=== PATIENT | female | born 1995 | race Two or more races ===

== ENCOUNTER 2024-09-06 20:20 | Emergency (ER) | payer MEDICAID, SELFPAY ==
[2024-09-06 20:53] VITALS: BP 120/77; PULSE 94; RESP 17; TEMP 36.8; O2SAT 100
--- NOTE | 2024-09-06 20:59 | XR_ITS ---
Examination: Abdomen sonogram, Limited Date and time of exam: September 06, 2024 2146 hrs. Indications: Onset epigastric pain today Technique: Real-time powell scale transabdominal sonographic images of the upper abdomen obtained. Findings: Multiple gallstones Gallbladder wall 0.3 cm no edema Common bile duct 0.2 cm Pancreatic head 2.2 cm Liver 18.3 cm fatty infiltration no focal liver lesions Normal hepatopedal portal venous flow Patent IVC Impression: Cholelithiasis, negative for cholecystitis Hepatomegaly fatty liver
--- NOTE | 2024-09-06 21:00 | PD.EDRME ---
Rapid Medical Screening Exam E Arrival date/time: 09/06/24 20:20 29F with no significant PMH presents to ED with several hours of RUQ/epigastric pain. Chief Complaint: Abdominal Pain Vital signs: Vital Signs Temperature 98.2 F 09/06/24 20:53 Pulse Rate 94 09/06/24 20:53 Respiratory Rate 17 09/06/24 20:53 Blood Pressure 120/77 09/06/24 20:53 Pulse Oximetry (%) 100 09/06/24 20:53 Oxygen Delivery Method Room Air 09/06/24 20:53
[2024-09-06 21:19] LABS: Basophils # (Auto) 0.1 Thou/mm3 (0.0-0.2); Basophils % (Auto) 0 % (0-2.5); Eosinophils # (Auto) 0.4 Thou/mm3 (0.0-0.5); Eosinophils % (Auto) 3 % (0-10); Hemoglobin 11.6 g/dL (12.0-16.0); Immature Granulocytes % (Auto) 0 % (0-0); Immature Granulocytes Auto 0.05 Thou/mm3 (0.00-0.00); Lymphocytes # (Auto) 2.5 Thou/mm3 (1.0-4.8); Lymphocytes % (Auto) 20 % (10-50); Mean Corpuscular HGB Conc 32.2 g/dl (31.0-37.0); Mean Corpuscular Volume 87 fL (80-100); Monocytes # (Auto) 0.7 Thou/mm3 (0.0-0.8); Monocytes % (Auto) 6 % (0-12); Neutrophils # (Auto) 8.9 Thou/mm3 (1.8-7.7); Neutrophils % (Auto) 71 % (37-80); Nucleated Red Blood Cell % 0 /100 WBC (0); Platelet Count 267 Thou/mm3 (140-440); RDW Standard Deviation 45.1 fL (36.4-46.3); Red Blood Count 4.15 Miln/mm3 (4.00-5.20); White Blood Count 12.6 Thou/mm3 (3.6-11.0)
[2024-09-06 21:44] LABS: Alanine Aminotransferase 13 U/L (10-49); Albumin, Serum 4.5 gm/dL (3.5-5.0); Albumin/Globulin Ratio 1.4 (1.2-2.2); Alkaline Phosphatase 56 U/L (46-116); Anion Gap 7 (7-16); Aspartate Amino Transferase 16 U/L (0-34); BUN/Creatinine Ratio 20 Ratio (12-20); Bilirubin,Total 0.4 mg/dL (0.3-1.2); Blood Urea Nitrogen 14 mg/dL (9-23); Calcium 9.7 mg/dL (8.3-10.6); Calcium (Corrected) 9.7 mg/dL (8.5-10.1); Carbon Dioxide 26.3 mMol/L (20.0-31.0); Chloride 105 mMol/L (98-107); Creatinine (Component) 0.7 mg/dL (0.6-1.3); Globulin 3.2 gm/dL (2.3-3.5); Glucose 87 mg/dL (74-106); Lipase 41 U/L (12-53); Osmolality,Calculated 275 (275-295); Potassium 3.8 mMol/L (3.4-5.1); Sodium 138 mMol/L (136-145); Total Protein 7.7 gm/dL (5.7-8.2); eGFR > 60 See Note
[2024-09-06 21:45] LABS: Collection Type, Urine Clean Catch; RBC,Urine 0 /hpf (0-3); WBC,Urine 0 /hpf (0-5)
[2024-09-06 22:03] LABS: Bacteria,Urine Rare; Bilirubin,Urine Negative (Negative); Blood,Urine Negative (Negative); Clarity,Urine Clear (Clear/Hazy); Color,Urine Lt-Yellow (Lt Yel-Yel); Glucose, Urine Negative (Negative); Ketones,Urine Negative (Negative); Leukocyte Esterase,Urine Negative (Negative); Nitrite,Urine Negative (Negative); PH,Urine 6.5 (5.0-7.0); Protein,Urine Negative (Neg - Trace); Specific Gravity,Urine 1.022 (1.001-1.035); Squamous Epithelial Cell,Urine 3 /hpf (0-5); Urobilinogen,Urine Negative mg/dL (0.0-1.0)
[2024-09-06 22:07] LABS: HCG Qualitative,Urine Negative
[2024-09-06 22:35] VITALS: BP 118/60; PULSE 88; RESP 18; TEMP 36.6; O2SAT 100
--- NOTE | 2024-09-06 22:55 | EDNOTE_ITS ---
ED Abdominal Pain RME/HPI General Chief Complaint: Abdominal Pain Stated complaint: RIGHT UPPER ABD PAIN Arrival date/time: 09/06/24 20:20 RME / HPI RME / HPI narrative: 09/06/24 20:20 29F with no significant PMH presents to ED with several hours of RUQ/epigastric pain. ----- Dr. Peres?s Main ED Evaluation: 29yo female presents to the ED for a chief complaint of RUQ pain x tonight. She states the pain has been progressively getting worse, reporting she took a medication she was prescribed for gastritis without any alleviation of symptoms, so she came in for evaluation. She denies any N/V/D, constipation, UTI symptoms or any other associated symptoms. No known allergies. Related Data Previous Rx's ?Medication ?Instructions ?Recorded ibuprofen 600 mg tablet 600 mg PO Q8H 7 days #21 tabs 12/24/21 Allergies Allergy/AdvReac Type Severity Reaction Status Date / Time No Known Allergies Allergy Verified 12/24/21 08:40 Review of Systems Review of Systems Systems Reviewed: All systems reviewed, normal except as documented Narrative Review of Systems: Gen: No fever, no chills, no weight loss EYES: No discharge, no visual changes, no pain HEENT: No ear pain, no congestion, no sore throat PULM: No shortness of breath, no cough, no congestion CV: No chest pain, no dyspnea on exertion, no palpitations GI: No nausea, no vomiting, no diarrhea, + pain, no constipation : No frequency, no urgency, no dysuria Musc/skel: No joint pain, no back pain Skin: No rash Psyc: No hallucinations, no depression Heme/Lymph: No easy bleeding or bruising tendencies Neuro: No weakness, no headache Past Medical History Past Medical History NEUROLOGIC: Negative Neurological Disorders or Seizures CARDIAC: Negative Cardiac Disorders, Congestive Heart Failure, Edema, Cellulitis or Varicose Veins RESPIRATORY: Negative Chronic Obstructive Pulmonary Disease (COPD), Asthma, Pneumonia, Pulmonary Fibrosis, Tuberculosis or Sleep Apnea GASTROINTESTINAL: Negative Gastrointestinal Disorders or Hepatitis GENITOURINARY: Negative Genitourinary Disorders or Renal Disease MUSCULOSKELETAL: Negative Musculoskeletal Disorders ENDOCRINE: Negative Endocrine Disorders, Diabetes Mellitus Type 1 or Diabetes Mellitus Type 2 HEMATOLOGIC: Negative Blood Disorders or Sickle Cell Disease OTHER HISTORY: Negative Hospitalization, Autoimmune Disease, Shingles, Falls, Blood Transfusions, Blood Transfusion Reaction, Anesthesia Reactions, Chemotherapy, Radiation Therapy, MRSA, Chicken Pox, Measles, Mumps or Cancer Family History FAMILY HISTORY: Negative Family Psychiatric Problems, Family Respiratory Disorders, Family Cardiac Disorders, Family Gastrointestinal Problems, Family Cancer, Family Surgery or Family Anesthesia Reaction Surgical History SURGICAL: Negative Pacemaker Social History SMOKING STATUS: Never smoker ED Exam Narrative Physical exam: GENERAL APPEARANCE: alert and oriented x 4, well-developed, well-nourished, no acute distress HEENT: Normocephalic, atraumatic; pupils equal, round, reactive to light; EOMI; mucous membranes pink, moist; oropharynx clear NECK: Supple LUNGS: CTABL; no wheezes, no rales, no rhonchi HEART: Regular rate, regular rhythm; normal S1, S2; no murmurs ABDOMEN: non distended; normal BS; soft, RUQ tenderness, mild guarding, no rebound; no masses, no organomegaly, no hernia BACK: no CVA tenderness EXTREMITIES: atraumatic; no edema NEUROLOGIC: awake; alert and oriented x4; cranial nerves II-XII grossly intact; no focal sensory or motor deficits PSYCHIATRIC: appropriate mood and affect SKIN: warm, dry, normal color; no rashes Course Quality Measures none Orders Category Date Time Status US gall bladder Stat Exams 09/06/24 20:59 Completed CBC Stat Lab 09/06/24 21:02 Completed CMP [Comprehensive Metabolic Panel] Stat Lab 09/06/24 21:02 Completed HCG Qualitative,Urine Stat Lab 09/06/24 21:30 Completed Lipase Stat Lab 09/06/24 21:02 Completed UA [Urinalysis] Stat Lab 09/06/24 21:30 Completed HYDROcodone*/APAP 5/325 [[place] 5/325] Med 09/06/24 23:24 Discontinued 1 tab PO X1 ONE Ketorolac Inj [Toradol Inj] Med 09/06/24 23:24 Discontinued 30 mg IM X1 ONE Vital Signs Vital signs: Vital Signs Temperature 98.2 F 09/06/24 20:53 Pulse Rate 94 09/06/24 20:53 Respiratory Rate 17 09/06/24 20:53 Blood Pressure 120/77 09/06/24 20:53 Pulse Oximetry (%) 100 09/06/24 20:53 Oxygen Delivery Method Room Air 09/06/24 20:53 Pulse ox is 100% on room air, which is normal according to my interpretation. Abdominal Pain MDM MDM Narrative MDM Narrative:: Scribe Attestation: 09/06/24 - Leola Alvarez, am scribing for and in the presence of Dr. Peres. Patient data External records reviewed:: [facility] previous records (Per chart review, patient was seen here on 12/14/22 for epigastric pain.) Clinical information provided by:: patient Social determinants that could affect healthcare access:: none Patient has the following chronic illnesses:: none How is presenting disease/condition affected by chronic disease/condition?: no chronic disease Evaluation data The following diagnostics were reviewed and interpreted by me:: lab results and radiology exam(s) Lab and/or radiology exams considered but not ordered:: none Interpretation Summary: WBC count is elevated at 12.6, CMP is normal, UA shows rare bacteria, HCG is negative, according to my interpretation. ----- I have personally reviewed the radiology data and agree with the radiologist's interpretation below: [facility] Report Signed Patient: HARIS MARTINEZ Record#: [id number] Birthdate: 1995 Age/Sex: 29 / F [facility] Attending Dr: Ordering Physician: Shaun Dahl PA-C Date of Service: 09/06/24 Procedure(s): US gall bladder Accession Number(s): [id number] cc: Dwain Lozada PA-C; Tony Lima MD; Shaun Dahl PA-C~ Examination: Abdomen sonogram, Limited Date and time of exam: September 06, 2024 2146 hrs. Indications: Onset epigastric pain today Technique: Real-time powell scale transabdominal sonographic images of the upper abdomen obtained. Findings: Multiple gallstones Gallbladder wall 0.3 cm no edema Common bile duct 0.2 cm Pancreatic head 2.2 cm Liver 18.3 cm fatty infiltration no focal liver lesions Normal hepatopedal portal venous flow Patent IVC Impression: Cholelithiasis, negative for cholecystitis Hepatomegaly fatty liver Dictated By: Tony Lima MD Signed By: <Electronically signed by Tony Lima MD in OV> 09/06/24 2314 Medications / Prescriptions Medications or Prescriptions considered but not ordered:: none Medication administrations:: Medication Administration History Discontinued Medications Hydrocodone Bitart/Acetaminophen (Hydrocodone/Apap 5/325 Tablet) 1 tab PO X1 ONE Stop: 09/06/24 23:25 Last Admin: 09/06/24 23:39 Dose: 1 tab Documented By: SF Ketorolac Tromethamine (Ketorolac Inj 30 Mg/Ml Vial) 30 mg IM X1 ONE Stop: 09/06/24 23:25 Last Admin: 09/06/24 23:40 Dose: 30 mg Documented By: SF see above, if any Consultations Consultation(s) initiated? (list below): No Diagnosis Differential diagnosis abdominal pain: pancreatitis and other (biliary colic, cholecystitis, hepatitis, gastritis) Most likely diagnosis given after review of the tests above:: see below Admission Indicated Admission indicated?: not indicated Admission Request Was there a request for admission?: No Disposition Plan Disposition Plan: Discharge Discharge Attestation Discharge Attestation: The patient and all family members were given an opportunity to ask questions and understood the discharge instructions. Discharge instructions specifically effects, indications for sooner follow up or return to the emergency department, and the expected course of current diagnosis. Patient condition: Stable Discharge Plan Plan Patient Disposition: HOME (Self Care) Prescriptions/Referrals Prescriptions/Med Rec: No Action ibuprofen 600 mg Tablet 600 mg PO Q8H 7 Days Qty: 21 0RF Referrals: Dwain Lozada PA-C [Primary Care Provider] - In 1 week Problem List Clinical Impression: Biliary colic, Fatty liver, Cholelithiasis Patient/Caregiver Discharge Instructions Education Materials: Nonalcoholic Fatty Liver ..., ED Gallstones with Biliary Colic Print Language: Romanian Stand Alone Forms: Anne Marie Award Info., Patient Portal Info Letter
[2024-09-06] MEDS: HYDROcodone/APAP 5/325 TABLET 1 TAB PO (23:39)
[2024-09-06] MEDS: KETOROLAC INJ 30 MG/ML VIAL IM (23:40)
[2024-09-07 00:02] VITALS: BP 126/71; PULSE 76; RESP 16; TEMP 36.7; O2SAT 98
== END 2024-09-07 00:07 | disposition home or self-care (01) ==
PROVIDERS: Physician Assistant; Emergency Provider Emergency Medicine; PCP Family Medicine
DX: K80.70 Calculus of gallbladder and bile duct without cholecystitis without obstruction (principal); K76.0 Fatty (change of) liver, not elsewhere classified
CPT/HCPCS: 36415; 76705; 80053; 81001; 81025; 83690; 85025; 96372; 99284; J1885; A9270

== ENCOUNTER 2024-10-05 16:54 | Emergency (ER) | payer MEDICAID, SELFPAY ==
[2024-10-05 17:06] VITALS: BP 123/71; PULSE 72; RESP 18; TEMP 37.2; O2SAT 100; BMI 25.7
--- NOTE | 2024-10-05 17:10 | XR_ITS ---
Examination: Abdomen sonogram, Limited Date and time of exam: October 05, 2024 1811 hrs. Indications: Right upper abdominal pain beginning 1500 hrs. Today, diagnosis cholelithiasis on abdomen sonogram September 06, 2024 Technique: Real-time powell scale transabdominal sonographic images of the upper abdomen obtained. Findings: Multiple gallstones Gallbladder wall normal 0.1 cm Normal common bile duct 0.1 cm Pancreatic head 2.8 cm Liver 17.3 cm fatty infiltration smooth contour Normal hepatopedal portal venous flow Patent IVC Impression: Cholelithiasis, negative for cholecystitis Mild hepatomegaly fatty liver
--- NOTE | 2024-10-05 17:12 | PD.EDRME ---
Rapid Medical Screening Exam RME Arrival date/time: 10/05/24 16:54 29-year-old female with history of gallstones presents to the emergency department complains of upper abdominal pain Chief Complaint: Abdominal Pain Time Seen by Provider: 10/05/24 17:05 Vital signs: Vital Signs Temperature 99.0 F 10/05/24 17:06 Pulse Rate 72 10/05/24 17:06 Respiratory Rate 18 10/05/24 17:06 Blood Pressure 123/71 10/05/24 17:06 Pulse Oximetry (%) 100 10/05/24 17:06 Oxygen Delivery Method Room Air 10/05/24 17:06
[2024-10-05] MEDS: HYDROcodone/APAP 5/325 TABLET 1 TAB PO (17:18)
[2024-10-05] MEDS: METOCLOPRAMIDE INJ 5 MG/ML VIAL 2 ML 10 MG IM (17:19)
[2024-10-05 17:48] LABS: Basophils % (Auto) 0 % (0-2.5); Eosinophils # (Auto) 0.1 Thou/mm3 (0.0-0.5); Eosinophils % (Auto) 1 % (0-10); Hematocrit 36.1 % (36.0-46.0); Immature Granulocytes % (Auto) 0 % (0-0); Immature Granulocytes Auto 0.02 Thou/mm3 (0.00-0.00); Lymphocytes # (Auto) 1.1 Thou/mm3 (1.0-4.8); Lymphocytes % (Auto) 15 % (10-50); Mean Corpuscular HGB Conc 33.2 g/dl (31.0-37.0); Mean Corpuscular Hemoglobin 28.5 pg (25.0-35.0); Mean Corpuscular Volume 86 fL (80-100); Monocytes # (Auto) 0.9 Thou/mm3 (0.0-0.8); Monocytes % (Auto) 12 % (0-12); Neutrophils # (Auto) 5.2 Thou/mm3 (1.8-7.7); Neutrophils % (Auto) 71 % (37-80); Nucleated Red Blood Cell % 0 /100 WBC (0); Platelet Count 237 Thou/mm3 (140-440); Red Blood Count 4.21 Miln/mm3 (4.00-5.20); White Blood Count 7.3 Thou/mm3 (3.6-11.0)
[2024-10-05 18:13] LABS: Alanine Aminotransferase 13 U/L (10-49); Albumin, Serum 4.8 gm/dL (3.5-5.0); Albumin/Globulin Ratio 1.5 (1.2-2.2); Alkaline Phosphatase 56 U/L (46-116); Anion Gap 11 (7-16); Aspartate Amino Transferase 19 U/L (0-34); BUN/Creatinine Ratio 18 Ratio (12-20); Bilirubin,Total 0.5 mg/dL (0.3-1.2); Blood Urea Nitrogen 11 mg/dL (9-23); Calcium 9.4 mg/dL (8.3-10.6); Calcium (Corrected) 9.4 mg/dL (8.5-10.1); Carbon Dioxide 24.7 mMol/L (20.0-31.0); Chloride 102 mMol/L (98-107); Creatinine (Component) 0.6 mg/dL (0.6-1.3); Estimated Creatinine Clearance 137.3 mL/min (>60); Globulin 3.2 gm/dL (2.3-3.5); Glucose 126 mg/dL (74-106); Lipase 36 U/L (12-53); Osmolality,Calculated 277 (275-295); Potassium 3.2 mMol/L (3.4-5.1); Sodium 138 mMol/L (136-145); eGFR > 60 See Note
[2024-10-05 18:54] LABS: Collection Type, Urine Clean Catch
[2024-10-05 19:04] LABS: HCG Qualitative,Urine Negative
[2024-10-05 19:15] LABS: Bilirubin,Urine Negative (Negative); Blood,Urine Negative (Negative); Color,Urine Yellow (Lt Yel-Yel); Culture Indicated,Urine Contaminated; Glucose, Urine Negative (Negative); Ketones,Urine 4+ (Negative); Leukocyte Esterase,Urine Positive (Negative); Nitrite,Urine Negative (Negative); PH,Urine 8.5 (5.0-7.0); Protein,Urine 1+ (Neg - Trace); RBC,Urine 10 /hpf (0-3); Specific Gravity,Urine 1.029 (1.001-1.035); Squamous Epithelial Cell,Urine 18 /hpf (0-5); WBC,Urine 16 /hpf (0-5)
[2024-10-05 19:17] LABS: Clarity,Urine Turbid (Clear/Hazy)
--- NOTE | 2024-10-05 20:48 | PD.EDABDPN ---
ED Abdominal Pain RME/HPI General Chief Complaint: Abdominal Pain Stated complaint: RUQ ABD PAIN X 1500, VOMIT; DX GALLSTONES 09/06/24 Time seen by provider: 10/05/24 17:05 Arrival date/time: 10/05/24 16:54 RME / HPI RME / HPI narrative: 29-year-old female with history of gallstones presents to the emergency department complains of upper abdominal pain. Onset of symptoms since 3 PM today, associated with vomiting. Patient was diagnosed with gallstones last September 06 last year. Denies any fever. Denies any other complaints. No medications given prior to arrival. Related Data Previous Rx's ?Medication ?Instructions ?Recorded ibuprofen 600 mg tablet 600 mg PO Q8H 7 days #21 tabs 12/24/21 dicyclomine 20 mg tablet 20 mg PO TID PRN abdominal pain 10/05/24 #30 tabs Allergies Allergy/AdvReac Type Severity Reaction Status Date / Time No Known Allergies Allergy Verified 10/05/24 16:57 Review of Systems Review of Systems Narrative Review of Systems: Review of system reviewed and within normal limits except mentioned in HPI ED Exam Narrative Physical exam: VITAL SIGNS: Reviewed. GENERAL APPEARANCE: Alert and interactive, follows commands, no acute distress, HEAD AND FACE: Non-traumatic. ENT: PERRL, pink conjunctivitis, eyelid no trauma, Mucous membrane moist. NECK: Supple, nontender, no nuchal rigidity. CHEST: No tenderness, no crepitus, no paradoxical movement, no retractions. LUNGS: Clear, well ventilated, symmetric, no rales, no wheezing, no ronchi, no stridor, good breath sounds bilaterally. HEART: Regular rate, regular rhythm, no murmur, no gallops. ABDOMEN: Soft, positive bowel sounds, nondistended, no guarding, right upper quadrant tenderness, no rebound, no masses, RECTAL: Deferred. GENITAL: Deferred. NEUROLOGICAL: Gross motor function intact sensory function intact, Appropriate for age. MUSCULOSKELETAL: low back nontender, full range of motion. EXTREMITIES: Nontender, full range of motion. SKIN: Color pink, dry, no rash, no lacerations, no abrasions, no contusions. LYMPHATICS: Deferred. Course Quality Measures none Orders Category Date Time Status US gall bladder Stat Exams 10/05/24 17:10 Completed CBC Stat Lab 10/05/24 17:16 Completed Comprehensive Metabolic Panel Stat Lab 10/05/24 17:16 Completed HCG Qualitative,Urine Stat Lab 10/05/24 18:45 Completed Lipase Stat Lab 10/05/24 17:16 Completed UA, C/S IF [Urinalysis, C/S if Indicated] Stat Lab 10/05/24 18:45 Completed HYDROcodone*/APAP 5/325 [[place] 5/325] Med 10/05/24 17:11 Discontinued 1 tab PO X1 ONE Ketorolac Inj [Toradol Inj] Med 10/05/24 20:26 Discontinued 60 mg IM X1 ONE Metoclopramide Inj [Reglan Inj] Med 10/05/24 17:10 Discontinued 10 mg IM X1 ONE Vital Signs Vital signs: Vital Signs Temperature 99.0 F 10/05/24 17:06 Pulse Rate 72 10/05/24 17:06 Respiratory Rate 18 10/05/24 17:06 Blood Pressure 123/71 10/05/24 17:06 Pulse Oximetry (%) 100 10/05/24 17:06 Oxygen Delivery Method Room Air 10/05/24 17:06 Abdominal Pain MDM MDM Narrative MDM Narrative:: 29-year-old female with history of gallstones presents to the emergency department complains of upper abdominal pain. Onset of symptoms since 3 PM today, associated with vomiting. Patient was diagnosed with gallstones last September 06 last year. Denies any fever. Denies any other complaints. No medications given prior to arrival. Laboratory workup all came back unremarkable. Except for potassium of 3.2. No leukocytosis LFTs are normal ultrasound the gallbladder showed cholelithiasis with no sign of acute cholecystitis. Patient was given Toradol IM with significant improvement of symptoms. Was also given potassium replacement. For potassium 3.2 Was advised to follow-up with PCP and follow-up with surgeon repair also. Patient agrees with the plan. Was also advised to stop eating or avoid eating fatty, greasy, fried foods or drinking milk Patient data External records reviewed:: None Clinical information provided by:: patient Social determinants that could affect healthcare access:: none Patient has the following chronic illnesses:: None How is presenting disease/condition affected by chronic disease/condition?: no chronic disease Evaluation data The following diagnostics were reviewed and interpreted by me:: lab results and radiology exam(s) Lab and/or radiology exams considered but not ordered:: None Interpretation Summary: Laboratory workup all came back unremarkable. Except for potassium of 3.2. No leukocytosis LFTs are normal ultrasound the gallbladder showed cholelithiasis with no sign of acute cholecystitis. Medications / Prescriptions Medications or Prescriptions considered but not ordered:: None Medication administrations:: Medication Administration History Discontinued Medications Hydrocodone Bitart/Acetaminophen (Hydrocodone/Apap 5/325 Tablet) 1 tab PO X1 ONE Stop: 10/05/24 17:12 Last Admin: 10/05/24 17:18 Dose: 1 tab Documented By: ANNA Ketorolac Tromethamine (Ketorolac Inj 60 Mg/2 Ml Vial) 60 mg IM X1 ONE Stop: 10/05/24 20:27 Metoclopramide HCl (Metoclopramide Inj 5 Mg/Ml Vial 2 Ml) 10 mg IM X1 ONE; Protocol Stop: 10/05/24 17:11 Last Admin: 10/05/24 17:19 Dose: 10 mg Documented By: ANNA Reglan, Toradol IM and [place] Consultations Consultation(s) initiated? (list below): No Diagnosis Differential diagnosis abdominal pain: abdominal pain, calculus of kidney and gastroenteritis Most likely diagnosis given after review of the tests above:: Gallstone, biliary colic Admission Indicated Admission indicated?: not indicated Admission Request Was there a request for admission?: No Disposition Plan Disposition Plan: Discharge Discharge Attestation Discharge Attestation: The patient and all family members were given an opportunity to ask questions and understood the discharge instructions. Discharge instructions specifically effects, indications for sooner follow up or return to the emergency department, and the expected course of current diagnosis. Patient condition: Stable Discharge Plan Plan Patient Disposition: HOME (Self Care) Disposition Comment: stable Prescriptions/Referrals Prescriptions/Med Rec: New dicyclomine 20 mg tablet 20 mg PO TID PRN (Reason: abdominal pain) Qty: 30 0RF No Action ibuprofen 600 mg Tablet 600 mg PO Q8H 7 Days Qty: 21 0RF Referrals: Dwain Lozada PA-C [Primary Care Provider] - In 1 week Problem List Clinical Impression: Gallstone Patient/Caregiver Discharge Instructions Discharge Activity: activity as tolerated Education Materials: ED Gallstones with Biliary Colic Additional Instructions: Thank you for the opportunity for serving you today. You are stable for discharged . You are advised to: Follow-up with your PCP in 1 to 2 days Return to ED for worsening of symptoms Increase oral fluids Take medication as prescribed Please avoid eating fatty, greasy, fried foods. Please avoid drinking milk. Print Language: Italian Stand Alone Forms: Anne Marie Award Info., Patient Portal Info Letter PA/LABORATORY VETERINARIAN Supervising Physician PA/LABORATORY VETERINARIAN Supervising Physician: MD Ralph
[2024-10-05] MEDS: KETOROLAC INJ 60 MG/2 ML VIAL IM (20:53)
[2024-10-05] MEDS: POTASSIUM CHLORIDE 20 mEq TABCR 40 MEQ PO (20:58)
[2024-10-05 21:06] VITALS: RESP 18
== END 2024-10-05 21:06 | disposition home or self-care (01) ==
PROVIDERS: Nurse Practitioner Primary Care; Emergency Provider Emergency Medicine; PCP Family Medicine
DX: K80.20 Calculus of gallbladder without cholecystitis without obstruction (principal)
CPT/HCPCS: 36415; 76705; 80053; 81001; 81025; 83690; 85025; 96372; 99284; J1885; J2765; A9270